=== PATIENT | male | born 1955 | race Caucasian/White ===

== ENCOUNTER → 2022-05-10 | Outpatient (REF) | payer BC ==
[2022-05-13 13:22] LABS: ATYPICAL LYMPH 63 % (0-5); BASOPHILS 1 % (0-1); LYMPHOCYTES 29 % (16-44); MONOCYTES 4 % (0-5); NEUTROPHILS 3 % (28-66)
[2022-05-13 13:23] LABS: SMUDGE CELLS 3+
[2022-05-13 13:24] LABS: CRENATED RBC 1+; PLATELET ESTIMATE NORMAL (NORMAL)
== END ==
LOC: M LAB REF 12:24
PROVIDERS: ATTEND Family Medicine
DX: C91.10 Chronic lymphocytic leukemia of B-cell type not having achieved remission (principal)

== ENCOUNTER 2022-05-26 11:03 | Emergency (ER) | payer BC, MEDICARE ==
[~2022-05-26] VITALS: Ht 185.4 cm; Wt 76.6 kg
[2022-05-26] MEDS ORDERED: BOOSTRIX/ADACEL VACCINE (DIPHTH/PERTUSS/ACELL/TETANUS) 0.5ML SYR IM ONE (13:00)
[2022-05-26] MEDS ORDERED: LIDOCAINE 1% MDV 20ML VIAL INFIL ONE (13:10)
[2022-05-26] MEDS ORDERED: CEPH500C PO (14:08)
[2022-05-26 14:23] VITALS: BP 92/61
== END 2022-05-26 14:24 | disposition home or self-care (01) ==
LOC: M ED 11:03
DX: S61.317A Laceration without foreign body of left little finger with damage to nail, initial encounter (principal); W22.8XXA Striking against or struck by other objects, initial encounter; Y92.009 Unspecified place in unspecified non-institutional (private) residence as the place of occurrence of the external cause; Y93.89 Activity, other specified; I10 Essential (primary) hypertension; C91.10 Chronic lymphocytic leukemia of B-cell type not having achieved remission

== ENCOUNTER 2022-08-15 07:40 | Day surgery (SDC) | payer BC ==
[~2022-08-15] VITALS: Ht 185.4 cm; Wt 73.5 kg
[~2022-08-15 07:40] MED LIST: CEPH500C PO; METO1TAB87 PO; NS 1,000 ML IV ONE; VITMTA PO
[2022-08-15] MEDS ORDERED: LIDOCAINE 2% 100MG/5ML SDV (FOR ANES.) As Ordered ONE (08:34)
[2022-08-15] MEDS ORDERED: propofoL 200 MG/20 ML VIAL As Ordered ONE (08:34)
[2022-08-15 09:05] VITALS: BP 100/61
== END 2022-08-15 09:24 | disposition home or self-care (01) ==
LOC: M OPP 07:40
PROVIDERS: ATTEND Surgery
DX: Z12.11 Encounter for screening for malignant neoplasm of colon (principal); D12.8 Benign neoplasm of rectum; K57.30 Diverticulosis of large intestine without perforation or abscess without bleeding; Z79.899 Other long term (current) drug therapy

== ENCOUNTER → 2023-05-21 | Outpatient (CLI) | payer BC ==
[~2023-05-21] MED LIST changes: -NS 1,000 ML IV ONE
[2023-05-21 13:43] LABS: HEMATOCRIT 44.1 % (42.0-52.0); HEMOGLOBIN 13.5 g/dl (13.5-17.5); MEAN CORPUSCULAR HEMOGLOBIN 29.6 pg (27.0-33.0); MEAN CORPUSCULAR HGB CONC 30.6 g/dl (32.0-36.5); MEAN CORPUSCULAR VOLUME 96.7 fl (80.0-96.0); PLATELET COUNT, AUTOMATED 178 10^3/uL (150-450); RED BLOOD COUNT 4.56 10^6/uL (4.30-6.10)
[2023-05-21 14:24] LABS: ATYPICAL LYMPH 39 % (0-5); LYMPHOCYTES 55 % (16-44); MONOCYTES 1 % (0-5); NEUTROPHILS 5 % (28-66); PLATELET ESTIMATE NORMAL (NORMAL); SMUDGE CELLS 2+
[2023-05-21 14:25] LABS: HYPOCHROMASIA 1+
== END ==
LOC: M WUC 10:03
PROVIDERS: ATTEND Family Medicine
DX: M54.50 Low back pain, unspecified (principal); C91.10 Chronic lymphocytic leukemia of B-cell type not having achieved remission

== ENCOUNTER → 2023-11-24 | Outpatient (REF) | payer BC ==
[2023-11-24 14:30] LABS: HEMOGLOBIN 12.9 g/dl (13.5-17.5); MEAN CORPUSCULAR HEMOGLOBIN 30.4 pg (27.0-33.0); MEAN CORPUSCULAR HGB CONC 31.5 g/dl (32.0-36.5); MEAN CORPUSCULAR VOLUME 96.5 fl (80.0-96.0); PLATELET COUNT, AUTOMATED 152 10^3/uL (150-450); RED BLOOD COUNT 4.25 10^6/uL (4.30-6.10)
[2023-11-24 14:38] LABS: WHITE BLOOD COUNT 111.4 10^3/uL (4.0-10.0)
[2023-11-24 16:25] LABS: BASOPHILS 1 % (0-1); LYMPHOCYTES 32 % (16-44); MONOCYTES 2 % (0-5); NEUTROPHILS 11 % (28-66)
[2023-11-24 16:27] LABS: ATYPICAL LYMPH 42 % (0-5); BLAST CELLS 12 % (0-0); HYPOCHROMASIA 1+
[2023-11-24 16:28] LABS: SMUDGE CELLS 3+
[2023-11-24 16:30] LABS: ANISOCYTOSIS 1+
[2023-11-24 16:32] LABS: PLATELET ESTIMATE NORMAL (NORMAL)
== END ==
LOC: M LAB REF 12:49
PROVIDERS: ATTEND Family Medicine
DX: C91.10 Chronic lymphocytic leukemia of B-cell type not having achieved remission (principal)

== ENCOUNTER → 2023-12-03 | Outpatient (CLI) | payer BC | LOC: M PLAIMG 11:02 | PROVIDERS: ATTEND Family Medicine | DX: I71.21 Aneurysm of the ascending aorta, without rupture (principal); R06.00 Dyspnea, unspecified; R01.1 Cardiac murmur, unspecified; I08.3 Combined rheumatic disorders of mitral, aortic and tricuspid valves ==